=== PATIENT | female | born 1985 | race Caucasian/White ===

== ENCOUNTER → 2019-03-01 | Outpatient (REF) | payer BC ==
[~2019-03-01] MED LIST: GLYB125TA PO; IBUP600T26 PO; MAPA500T17 PO; MAPA500T2 PO; PERC5TAB12 PO; STUACAP PO
== END ==
LOC: M LAB REF 18:01
PROVIDERS: ATTEND Advanced Practice Midwife
DX: Z12.4 Encounter for screening for malignant neoplasm of cervix (principal); N87.0 Mild cervical dysplasia
CPT/HCPCS: 87624; G0123

== ENCOUNTER → 2020-12-28 | Outpatient (CLI) | payer BC ==
[~2020-12-28] MED LIST changes: +PROHANCE 279.3MG/ML 15ML VIAL As Ordered ONE
--- NOTE | 2020-12-28 12:43 | REP ---
INDICATION: SOFT TISSUE MASS. COMPARISON: None. TECHNIQUE: Multiple sequences obtained in the axial, coronal and sagittal planes prior to and following the intravenous administration of 14 mL ProHance. The region of the palpable abnormality in the posterior right chest wall is marked on the skin. FINDINGS: No focal soft tissue signal abnormality is seen. I see no cystic or solid mass. No fluid collection is seen. No abnormal bone marrow signal is seen. There is curvature of the thoracic spine convex to the right. There is no abnormal enhancement. No encapsulated lipoma is seen in the superficial soft tissues. IMPRESSION: No abnormality identified in the soft tissues of the right posterior chest wall in the region of the reported palpable abnormality. <Electronically signed by David Cabral > 12/28/20 [id number]
== END ==
LOC: M RAD 10:38
PROVIDERS: ATTEND Family Medicine
DX: C49.9 Malignant neoplasm of connective and soft tissue, unspecified (principal)
CPT/HCPCS: 71552; A9576

== ENCOUNTER → 2021-06-11 | Outpatient (REF) | payer BC ==
[~2021-06-11] MED LIST changes: -PROHANCE 279.3MG/ML 15ML VIAL As Ordered ONE
== END ==
LOC: M SFHCRHEU 10:04
PROVIDERS: ATTEND Internal Medicine
DX: R70.0 Elevated erythrocyte sedimentation rate (principal); R79.82 Elevated C-reactive protein (CRP)

== ENCOUNTER → 2024-05-31 | Outpatient (REF) | payer BC ==
[2024-06-05 15:38] LABS: HPV APTIMA Not Detected (Not Detected)
== END ==
LOC: M SFHCWAGY 14:55
PROVIDERS: ATTEND Advanced Practice Midwife
DX: Z12.4 Encounter for screening for malignant neoplasm of cervix (principal); R87.610 Atypical squamous cells of undetermined significance on cytologic smear of cervix (ASC-US)
CPT/HCPCS: 87624; G0123

== ENCOUNTER → 2025-09-10 | Outpatient (REF) | payer BC ==
[2025-09-12 16:20] LABS: HPV APTIMA Not Detected (Not Detected)
== END ==
LOC: M PLALAB 13:31
PROVIDERS: ATTEND Student in an Organized Health Care Education/Training Program
DX: Z12.4 Encounter for screening for malignant neoplasm of cervix (principal)
CPT/HCPCS: 87624; G0123

== ENCOUNTER → 2025-09-10 | Outpatient (CLI) | payer BC | LOC: M WHC 12:28 | PROVIDERS: ATTEND Student in an Organized Health Care Education/Training Program | DX: Z12.31 Encounter for screening mammogram for malignant neoplasm of breast (principal); R92.313 Mammographic fatty tissue density, bilateral breasts | CPT/HCPCS: 77063; 77067; 87624; G0123 ==